=== PATIENT | male | born 1955 | race African-American/Black ===

== ENCOUNTER 2019-08-12 10:31 | Emergency (ER) | payer MEDICARE | END 2019-08-12 11:03 | disposition home or self-care (01) | LOC: ERS 10:31 | DX: M10.9 Gout, unspecified (principal); I10 Essential (primary) hypertension; F17.220 Nicotine dependence, chewing tobacco, uncomplicated; Z79.899 Other long term (current) drug therapy | CPT/HCPCS: 99283 ==

== ENCOUNTER 2021-02-21 15:58 | Emergency (ER) | payer MEDICARE ==
[2021-02-21] MEDS ORDERED: levETIRAcetam 500 MG TAB PO SCH (16:45)
== END 2021-02-21 17:29 | disposition home or self-care (01) ==
LOC: ERS 15:58
DX: Z76.0 Encounter for issue of repeat prescription (principal); I10 Essential (primary) hypertension; M10.9 Gout, unspecified; Z79.899 Other long term (current) drug therapy
CPT/HCPCS: 99281

== ENCOUNTER 2021-08-19 12:29 | Outpatient (CLI) | payer OTHER ==
[~2021-08-19 12:29] MED LIST: Gadobenate Dimeglumine 529 MG/1 ML (20ML VIAL) ONE
== END 2021-08-19 12:30 | disposition home or self-care (01) ==
LOC: TBSIIMAG 12:29
PROVIDERS: ATTEND Urology
DX: R97.20 Elevated prostate specific antigen [PSA] (principal); N40.0 Benign prostatic hyperplasia without lower urinary tract symptoms
CPT/HCPCS: 72197; 82565; A9577

== ENCOUNTER 2023-11-18 08:14 | Outpatient (CLI) | payer OTHER | END 2023-11-18 08:15 | disposition home or self-care (01) | LOC: BICULT 08:14 | PROVIDERS: ATTEND Student in an Organized Health Care Education/Training Program | DX: N18.2 Chronic kidney disease, stage 2 (mild) (principal); N28.1 Cyst of kidney, acquired; N40.0 Benign prostatic hyperplasia without lower urinary tract symptoms | CPT/HCPCS: 76770 ==